=== PATIENT | female | born 1980 | race Caucasian/White ===

== ENCOUNTER 2018-07-22 14:27 | Emergency (ER) | payer OTHER, SELFPAY ==
[2018-07-22 14:28] VITALS: BP 141/76; PULSE 101; RESP 14; TEMP 37; O2SAT 98; BMI 30.7
--- NOTE | 2018-07-22 14:53 | EKG12_ITS ---
Test Reason : HEADACHE Blood Pressure : / mmHG Vent. Rate : 080 BPM Atrial Rate : 080 BPM P-R Int : 144 ms QRS Dur : 072 ms QT Int : 390 ms P-R-T Axes : 070 037 046 degrees QTc Int : 449 ms Normal sinus rhythm Normal ECG Confirmed by SANDRA WALLER MD ([id number]), copy editor RUSSELL HOPKINS ([id number] on 07/24/2018 3:28:25 PM Referred By: Confirmed By:SANDRA WALLER MD
--- NOTE | 2018-07-22 14:55 | NURSING ---
NO OLD EKGS
--- NOTE | 2018-07-22 14:57 | ED.DCSUM_ITS ---
- ER Visit Summary Date of Service: 07/22/18 Chief Complaint: Headache History of Present Illness: The patient is a 37 F presenting with headache. She states this started on . Her headache was gradual in onset and has been intermittent. She states it improves with ibuprofen. She was concerned because she also has lightheadedness associated with this. She has not passed out. She denies vertigo. Denies numbness or weakness. Denies fever. She has history of headaches but she has not been lightheaded with them in the past. This is not the worst headache of her life. She denies chest pain or shortness of breath. Physical Examination: Vitals are stable. Patient is afebrile. Alert no acute distress. HEENT exam is unremarkable. Neck is supple. No meningismus Lungs are clear and equal bilaterally. Heart is regular rate and rhythm. Abdomen is soft nontender nondistended. Extremities are unremarkable. Skin is warm and dry. No focal neurologic deficit. Remainder of exam is unremarkable. Emergency Department Course and Treatment: Patient given IV fluids, Toradol. She states when she turns her head she has an off balance feeling. She was given meclizine with improvement. EKG is sinus rate of 80 with no acute i schemic changes. CBC, chemistries unremarkable. Troponin is negative. HCG negative. Patient is feeling improved. She has a steady gait. She is given a prescription for meclizine. She is advised to follow-up with Dr. Alcala pet supplies salesperson for no doc. Advised return to the ED for worsening complaints. Disposition: Discharge home Impression: Headache This note was generated with 10X10 Room dictation software. It may contain incorrect words, spelling, and punctuation that were not noted in review of the chart prior to signing ED Disposition - Plan for ED Patient: Disposition: Home or Assisted Living Chief Complaint: Headache Instructions: ED Cephalgia Unspecified Prescriptions: RX: Meclizine HCl [Antivert] 12.5 mg PO TID PRN PRN #15 tablet PRN Reason: Vertigo Referrals: Frances Alcala MD [STAFF PHYSICIAN] - González Cruz MD [STAFF PHYSICIAN] - NOT,DEFINED [NON-STAFF] -
[2018-07-22] MEDS: Ketorolac 30 MG/ML Syringe IV (15:13)
[2018-07-22] MEDS: 0.9% Normal Saline 1,000 ML 1000 ML IV (15:13)
[2018-07-22] MEDS: Meclizine 12.5 MG Tablet PO (15:19)
[2018-07-22 15:25] LABS: Absolute Neutrophil Count 8.9 X10^3/uL (2.0-7.7); Basophil# 0.04 X10^3/uL; Basophil% 0.3 % (0-1); Eosinophil# 0.35 X10^3/uL; Hematocrit 44.2 % (37-47); Hemoglobin 15.4 g/dl (12.0-15.0); Lymphocyte % 17.8 % (19-41); Mean Corp Hgb Conc 34.8 g/gl (32-36); Mean Corpuscular Hgb 29.2 pg (27.0-32.0); Mean Corpuscular Volume 83.7 fL (81-99); Mean Platelet Vol. 10.9 fl (6.2-12.0); Monocyte# 0.44 X10^3/uL; Monocyte% 3.7 % (0-10); Neutrophil # 8.85 X10^3/uL (2.7-7.7); Platelet Count 274 K/mm3 (150-450); RBC Distribution Width CV 13.1 % (11.6-14.6); RBC Distribution Width SD 40.2 fl (35.1-43.9); Red Blood Count 5.28 M/mm3 (4.2-5.4); White Blood Count 11.8 K/mm3 (4.4-11.0)
[2018-07-22 15:28] LABS: POSITIVE COUNT NO; POSITIVE DIFFERENTIAL NO; POSITIVE MORPHOLOGY NO
[2018-07-22 15:38] LABS: Anion Gap 5 (5-15); BUN 7 mg/dL (7-18); BUN/Creat Ratio 11.4 RATIO (10-20); Calcium,Total 8.5 mg/dL (8.5-10.1); Chloride 107 mmol/L (98-107); Creatinine, Serum 0.62 mg/dL (0.55-1.02); EST Glomerular Filtration Rate 116 mL/min (>60); Est Glom Filt Rate - Afr Amer 141 mL/min (>60); Glucose 92 mg/dL (74-106); Potassium 3.7 mmol/L (3.5-5.1); Sodium Level 140 mmol/L (136-145)
[2018-07-22 16:02] LABS: Pregnancy, Serum, hCG Quali. NEGATIVE Negative (0-9 Nonpreg)
--- NOTE | 2018-07-22 16:16 | ED.DEP ---
ED Disposition - Plan for ED Patient: Chief Complaint: Headache Instructions: ED Cephalgia Unspecified Prescriptions: Meclizine HCl [Antivert] 12.5 mg PO TID PRN PRN #15 tablet PRN Reason: Vertigo Referrals: NOT,DEFINED [NON-STAFF] - Frances Alcala MD [STAFF PHYSICIAN] - González Cruz MD [STAFF PHYSICIAN] -
== END 2018-07-22 16:53 | disposition home or self-care (01) ==
PROVIDERS: Emergency Provider Emergency Medicine
DX: R51 Headache (principal); Z72.0 Tobacco use
CPT/HCPCS: 80048; 84484; 84703; 85025; 93005; 96361; 96374; 99283; J7030; A4216

== ENCOUNTER → 2022-09-24 | Outpatient (CLI) | payer BC, SELFPAY ==
[2022-09-24 12:10] LABS: Absolute Lymphocyte Count 1.83 X10^3/uL (0.83-4.51); Basophil# 0.03 X10^3/uL; Basophil% 0.3 % (0-1); Eosinophil# 0.26 X10^3/uL; Eosinophils% 2.4 % (0-5); Hematocrit 40.8 % (37-47); Lymphocyte # 1.83 X10^3/ul (0.83-4.51); Lymphocyte % 17.1 % (19-41); Mean Corp Hgb Conc 34.3 g/dL (32-36); Mean Corpuscular Hgb 29.7 pg (27.0-32.0); Mean Corpuscular Volume 86.4 fL (81-99); Monocyte# 0.56 X10^3/uL; Monocyte% 5.2 % (0-10); NRBC Flagged by Analyzer 0 % (0-5); Neutrophil # 7.98 X10^3/uL (2.7-7.7); Neutrophil % 74.6 % (47-70); Platelet Count 236 K/mm3 (150-450); RBC Distribution Width CV 12.5 % (11.6-14.6); RBC Distribution Width SD 39.5 fl (35.1-43.9); Red Blood Count 4.72 M/mm3 (4.2-5.4); White Blood Count 10.7 K/mm3 (4.4-11.0)
[2022-09-24 12:59] LABS: ALB/GLOB Ratio 1.4 RATIO (0.9-2.4); AST(SGOT) 12 U/L (15-37); Alanine Aminotransfer ALT/SGPT 18 U/L (13-56); Alkaline Phosphatase 57 U/L (45-117); Anion Gap 8 (5-15); BUN 12 mg/dL (7-18); BUN/Creat Ratio 22.2 RATIO (10-20); Calcium,Total 8.8 mg/dL (8.5-10.1); Chloride 104 mmol/L (98-107); Cholesterol 211 mg/dL (200); Creatinine, Serum 0.54 mg/dL (0.55-1.02); EST Glomerular Filtration Rate 132 mL/min (>60); Est Glom Filt Rate - Afr Amer 160 mL/min (>60); Globulin 2.9 g/dL (2.2-4.2); Glucose 79 mg/dL (74-106); High Density Lipoprotein 69 mg/dL; Potassium 3.9 mmol/L (3.5-5.1); Protein, Total 6.9 g/dL (6.4-8.2); Sodium Level 140 mmol/L (136-145); Thyroid Stim Hormone (TSH) 0.37 uIU/mL (0.358-3.74); Triglycerides 124 mg/dL; Very Low Density Lipoprotein 25 mg/dL (5-40)
== END | disposition home or self-care (01) ==
LOC: MFPLAB 10:00
PROVIDERS: Visit Provider Family Medicine
DX: Z00.00 Encounter for general adult medical examination without abnormal findings (principal)
CPT/HCPCS: 36415; 80053; 80061; 84443; 85025

== ENCOUNTER 2024-08-23 09:42 | Day surgery (SDC) | payer BC, SELFPAY ==
--- NOTE | 2024-08-21 09:42 | PCM.HP.BLA ---
History and Physical Date of Admission: 08/23/24 HPI: The patient is a 43 year old female presenting for pre-operative visit. She is scheduled for LAVH, bilateral salpingectomy and cystoscopy for dysmenorrhea, adenomyosis, subserous and intramural fibroids and menorrhagia on 08/23/24. Procedure discussed along with risks, benefits and complications. Other alternatives discussed for management. Consent form signed? Yes. PAST MEDICAL HISTORY PAST MEDICAL HISTORY Diagnosis Date ? NEGATIVE MEDICAL HISTORY PAST SURGICAL HISTORY PAST SURGICAL HISTORY Procedure Laterality Date ? INSERTION OF IUD 01/11/2018 ? INSERTION OF IUD 12/2023 fell out within 6 months ? UNSPECIFIED ORAL SURGERY PROCEDURE, BY REPORT [place] CURRENT MEDICATIONS Current Outpatient Medications Medication Sig Dispense Refill ? erythromycin (ROMYCIN) 5 mg/gram (0.5 %) ophthalmic ointment ? triamcinolone (KENALOG) 0.025 % cream APPLY TO THE AFFECTED FLARES ON THE EYELIDS TWICE DAILY X2 WEEKS THEN TWICE WEEKLY NEEDED ? tranexamic acid (LYSTEDA) 650 mg tablet Take 2 tablets 3 times a day as needed for heavy bleeding up to 5 days. (Patient not taking: Reported on 08/07/2024) 30 tablet 2 ? norethindrone (AYGESTIN) 5 mg tablet Take 2 tablets by mouth two times a day. (Patient not taking: Reported on 08/21/2024) 120 tablet 0 No current facility-administered medications for this visit. ALLERGIES: Cefdinir and Penicillins PERSONAL HISTORY: SOCIAL HISTORY Social History Tobacco Use ? Smoking status: Former Current packs/day: 0.00 Types: Cigarettes Start date: 05/08/1999 Quit date: 05/08/2009 Years since quittin.2 ? Smokeless tobacco: Never ? Tobacco comments: 8 cig per day Vaping Use ? Vaping status: Never Used Substance Use Topics ? Alcohol use: Yes Comment: RARELY BUT NOT WHILE ? Drug use: No FAMILY HISTORY: FAMILY HISTORY FAMILY HISTORY Problem Relation Age of Onset ? Alcohol/Drug Mother ? other (graves disease) Mother ? Cancer Father lymphoma ? Arthritis Maternal Grandmother ? Diabetes Maternal Grandmother ? Heart Maternal Grandmother ? Thyroid Maternal Grandmother ? Cancer Paternal Grandfather LEUKEMIA GENERAL: denies fevers or chills ENDOCRINOLOGY: has not been on steroids Cardiology : denies palpitations or chest pain Respiratory: denies SOB or cough Hematology: denies history of prolonged bleeding or easy bruising or VTE Allergy: Denies history of personal or family history of allergy to anesthesia PHYSICAL EXAMINATION: VITALS: Blood pressure 124/82, pulse 84, height 153.7 cm (5' 0.5), weight 64.9 kg (143 lb), last menstrual period 06/11/2024, SpO2 99%. GENERAL: The patient is well nourished, well hydrated in no acute distress. , The patient is oriented to time, place, and person. NECK: Supple. No lynphadenopathy, normal thyroid, no thyromegaly. LUNGS: Clear to auscultation bilaterally. no wheezes, rhonchi or rales HEART: Regular rate and rhythm, Normal heart sounds, and No murmurs or gallops Pelvic ultrasound from 07/12/2024 mpression 3D rendering of the uterus demonstrates a malpositioned IUD with the device not visualized, no IUCD seen in the endometrial cavity. The uterus is anteverted and measures 105 mm x 57 mm x 77 mm. The myometrium is heterogeneous, echogenic but no obvious fibroids are observed. This finding is suggestive of adenomyosis. The endometrial thickness is 3.7 mm. Within the endometrial cavity is a submucous fibroid, and material of mixed echogenicity and small amount of fluid consistent with blood products. No IUD in seen. 1. Right lateral wall submucous fibroid measures 20 mm x 20 mm x 23 mm. 2. Right lateral anterior wall subserous fibroid measures 17 mm x 18 mm x 14 mm. 3. Left lateral posterior wall subserous fibroid measures 15 mm x 13 mm x 12 mm. 4. Left lateral posterior wall intramural fibroid measures 12 mm x 11 mm x 9 mm. 5. Left lateral anterior wall intramural fibroid measures 7 mm x 5 mm x 6 mm. The right ovary measures 28 mm x 22 mm x 17 mm. The left ovary measures 27 mm x 18 mm x 23 mm. IMPRESSION: Dysmenorrhea, intramural and subserosal fibroids, adenomyosis, menorrhagia with irregular cycles PLAN: The risks/benefits/alternatives and personal involved for the planned laparoscopic-assisted vaginal hysterectomy with bilateral salpingectomy and cystoscopy were reviewed with the patient. Her questions were answered to her satisfaction and she desires to proceed. Consent was signed. I reviewed with her postop instructions and expectations. I have reviewed and updated past medical and surgical history, medications and allergies Assessment & Plan Assessment/Plan (1) Dysmenorrhea: (2) Adenomyosis: (3) Menorrhagia with irregular cycle: (4) Fibroids, intramural: (5) Fibroids, subserous:
--- NOTE | 2024-08-21 13:28 | EKG12_ITS ---
Test Reason : PRE OP Blood Pressure : */* mmHG Vent. Rate : 71 BPM Atrial Rate : 71 BPM P-R Int : 130 ms QRS Dur : 64 ms QT Int : 396 ms P-R-T Axes : 64 17 20 degrees QTcB Int : 430 ms Normal sinus rhythm Possible Left atrial enlargement Borderline ECG Confirmed by Todd Reece ([id number]), editor in chief newspaper MARKEL HUIZAR ([id number]) on 08/22/2024 5:50:01 AM Referred By: Nae Dowell Confirmed By: Todd Reece
[2024-08-21 15:00] LABS: Magnesium 2.4 mg/dL (1.6-2.6)
[2024-08-23] VITALS (13 sets, daily range): BP systolic 120–137; BP diastolic 51–85; PULSE 55–89; RESP 14–16; TEMP 36.5–37.2; O2SAT 97–100; BMI 27.6
[2024-08-23 10:20] LABS: Internal QC Validated? YES +Cl - CLEAR BKGD
[2024-08-23 10:21] LABS: Pregnancy, Urine Negative Negative
[2024-08-23] MEDS: metroNIDAZOLE 500 MG/100 ML BAG 100 MG IV (10:25)
[2024-08-23] MEDS: Lactated Ringers 1,000 ML 40 ML IV (10:36)
[2024-08-23] MEDS: Gabapentin 600 MG Tablet PO (10:36)
[2024-08-23] MEDS: Phenazopyridine 95 MG Tablet 190 MG PO (10:37)
[2024-08-23] MEDS: Acetaminophen 500 MG Tablet 1000 MG PO (10:37)
[2024-08-23] MEDS: Enoxaparin 40 MG/0.4 ML Syringe SC (10:37)
[2024-08-23] MEDS: Celecoxib 200 MG Capsule 400 MG PO (10:37)
[2024-08-23] MEDS: Scopolamine 1mg/72hr Patch 1 PATCH TD (10:37)
[2024-08-23] MEDS: Magnesium 1 GM over 15 mins IV (10:45)
[2024-08-23 11:14] LABS: Bedside Glucose 93 mg/dL (74-106)
--- NOTE | 2024-08-23 12:05 | HYST_PTH ---
PATIENT: KATHARINA SWIFT LOC: [facility] [place] U[place][id number] AGE/SX: 43/F ROOM: RE08/23/[address]: Dr. Yari Marsh, MDDOB: 1980 BED: DIS: 08/23/2024 SPEC #: [id number] RECD: 08/23/24 17:55 STATUS: FORTUNATO PAULINO #: [id number] ADRI: 08/23/24 12:[address]: Yari Marsh DEPT: SURGICAL PATHOLOGY RECD BY: Britney Larkin ENTERED: 08/24/24 07:43 SP TYPE: HYSTERECT OTHR DR: MD Dr. Nae Subramanian MD Tissues: Uterus, NOS Procedures: Surgery Specimen Level V HEADER OPERATION: Total laparoscopic hysterectomy, bilateral salpingectomy PRE-OP DIAGNOSIS: Dysmenorrhea, adenomyosis, menorrhagia with irregular cycle, fibroids, intramural, fibroids, subserous TISSUE SUBMITTED: Uterus, cervix, bilateral fallopian tubes MICROSCOPIC DIAGNOSIS Uterus, hysterectomy: Cervix - Nabothian cysts, squamous metaplasia and mild chronic inflammation. Endometrium - Weakly proliferative endometrium, focal squamous metaplasia and mild chronic endometritis. Myometrium - Leiomyomas with degenerative change. Right and left fallopian tubes- No pathologic change. AMMai 08/27/2024 MICROSCOPIC DESCRIPTION Slides are reviewed. GROSS DESCRIPTION Received in fixative is one container labeled with the patient's name and designated uterus. The specimen consists of a uterus with attached cervix and two detached fallopian tubes. The uterus with cervix measures 10.0 x 8.0 x 6.0 cm and weighs 143 gm. The ectocervix is unremarkable. The cervical os is oval in contour and free of mass lesions. The endocervical canal measures 3.5 cm in length and is grossly unremarkable. The triangular endometrial cavity measures 4.5 x 3.0 cm. The reddish-hampton endometrium measures up to 0.2 cm in thickness. The myometrium contains multiple white rubbery nodules ranging in size from 0.7 to 3.2cm. The nodules are intermural and submucosal in the location. The myometrium without the nodules measures 1.7cm in average thickness. Both fallopian tubes are similar in appearance with average lengths of 6.0cm in length and average diameter of 0.5cm. Brush And Broom Clipper sections are submitted as follows: 1 - anterior cervix, 2 - posterior cervix, 3 & 4 - anterior uterine wall, 5 & 6 - posterior uterine wall, 7 - largest myometrial mass, 8 - smaller myometrial masses, 9- one fallopian tube, 10- other fallopian tube. / AM: 08/24/2024 TC:1 CPT: 08034
--- NOTE | 2024-08-23 12:14 | PRE.ANES_ITS ---
ASA Classification* ASA Classification ASA Classification: 1 Assessment & Plan Anesthesia* Anesthesia Assessment Anesthesia Assessment: Discussed sedation and/or anesthesia options, risks, benefits, and alternatives with patient/parents/legal guardian/POA. Questions invited. The patient/parents/legal guardian/POA seems to understand and agrees to proceed with anesthesia plan. Reviewed the physical assessment, medical history, allergy history and patient home medications list prior to surgery/procedure/anesthetic and documented any changes. Performed airway and anesthesia risk assessments. Anesthesia Type Anesthesia Type: General History Source History Obtained from:: Patient and Chart Anesthesia Focused Assessment* Temperature: 98.4 F Pulse Rate: 82 Blood Pressure: 128/85 Respiratory Rate: 16 Pulse Ox: 100 Oxygen Delivery Method: Room Air Airway Assessment Mouth opens: >3 cm Mallampati Score: II Teeth Condition: Chipped/Broken (Chipped tooth #8. It has been bonded. All else are tight) Neck Range of motion (ROM): Full ROM Focused Labs Anesthesia Preop lab: CBC WBC 10.7 K/mm3 (4.4-11.0) 09/24/22 10:01 RBC 4.72 M/mm3 (4.2-5.4) 09/24/22 10:01 Hgb 14.0 g/dL (12.0-15.0) 09/24/22 10:01 Hct 40.8 % (37-47) 09/24/22 10:01 Plt Count 236 K/mm3 (150-450) 09/24/22 10:01 CHEMISTRY Potassium 3.9 mmol/L (3.5-5.1) 09/24/22 10:01 Sodium 140 mmol/L (136-145) 09/24/22 10:01 Magnesium 2.4 mg/dL (1.6-2.6) 08/21/24 13:50 BUN 12 mg/dL (7-18) 09/24/22 10:01 Creatinine 0.54 mg/dL (0.55-1.02) L 09/24/22 10:01 Glucose 79 mg/dL (74-106) 09/24/22 10:01 POC Glucose 93 mg/dL (74-106) 08/23/24 10:41 TSH 0.37 uIU/mL (0.358-3.74) 01/06/23 10:01 COAG Urine Test Negative Negative 08/23/24 10:10 Pre-Assessment Diagnosis/Proposed Procedure Planned Operative Procedure(s): LAVH BSO CYSTO Anesthesia History Anesthesia History - laminator printed circuit boards: Anesthesia History - laminator printed circuit boards Hx Hospitalization No 08/15/24 14:12 Any Problems With Anesthesia No 08/15/24 14:12 Cholinesterase deficiency No 08/15/24 14:12 You/Your Family Experience No 08/15/24 14:12 fever (hyperthermia) with Relationship Recent Exposure to Contagious No 08/23/24 10:18 Disease Does patient have nerve No 08/15/24 14:12 stimulator Patient instructed to have device shut off --Does patient have Pacemaker No 08/23/24 10:18 or ICD? When Was Last Pacemaker Check QUESTION #4 FULL TEXT: You/Your Family Experience fever (hyperthermia) with Anesthesia Last Oral Intake Last Oral intake: Last Oral Intake NPO since 08:00 08/23/24 10:18 Meds taken in AM with sips of No 08/23/24 10:18 water? Meds patient instructed to take am of surgery Any additional information?: Yes NPO since: 08:00 (Patient finished her Ensure at 8 AM.) PONV PONV - laminator printed circuit boards: PONV - laminator printed circuit boards Female Yes 08/15/24 14:12 HX of Motion Sickness Yes 08/15/24 14:12 HX of N/V After Surgery No 08/15/24 14:12 Non-Smoker Yes 08/15/24 14:12 Duration of Surgery greater Yes 08/15/24 14:12 than 60 minutes Number of Risk Factors 4 08/15/24 14:12 PONV Score Severe Risk 08/15/24 14:12 Height & Weight Height & Weight: Anesthesia: Height & Weight Height 5 ft 0.5 in 08/23/24 10:18 Weight: 65.2 kg 08/23/24 10:18 Body Mass Index (BMI) 27.6 08/23/24 10:18 Respiratory Assessment Respiratory Assessment - laminator printed circuit boards: Respiratory Tract Infection Hx - laminator printed circuit boards Hx Respiratory Tract Infection No 08/15/24 14:12 STOP Sleep Apnea STOP Sleep Apnea - laminator printed circuit boards: STOP Sleep Apnea - laminator printed circuit boards Hx Hypertension No 08/15/24 14:12 Hx Sleep Apnea No 08/15/24 14:12 CPAP BIPAP Do you snore loudly (louder No 08/15/24 14:12 than talking or can be heard Do you often feel tired/ No 08/15/24 14:12 fatigued/ sleepy during daytime? Has anyone observed you stop No 08/15/24 14:12 breathing during sleep? STOP Results Negative 08/15/24 14:12 QUESTION #5 FULL TEXT : Do you snore loudly (louder than talking or can be heard through closed doors)? Tobacco Use History Tobacco Use History - laminator printed circuit boards: Tobacco Use History - laminator printed circuit boards Tobacco Use Smoking Status Former smoker 08/15/24 14:12 Hx Tobacco Use No 08/15/24 14:12 Years Smoking Packs Smoked per Day Smoking Cessation Date was Yes - quit smoking within 15 08/15/24 14:12 within the last 15 years years Hx Smoking Cessation Date 09/19/20 08/15/24 14:12 Hx Smoking Cessation No 08/15/24 14:12 Counseling Hematologic Medial History Hematologic Hx - laminator printed circuit boards: Hematologic Medical Hx - documentation supervisor Hx of Blood Transfusion No 08/15/24 14:12 Hx of Transfusion in last 3 No 08/15/24 14:12 Months Date of Last Transfusion (if within last 3 months) Ever experience any problems No 08/15/24 14:12 with transfusion(s)? Specify any problems Hx of Preganancy in last 3 No 08/15/24 14:12 Months Nurse Filling Out Transfusion DSCHRIBER 08/15/24 14:12 & Questions: Date: 08/15/24 08/15/24 14:12 Time: 14:13 08/15/24 14:12 Patient unable to answer at this time (ie. confused, unrespo /Reproduction History /Reproductive History - laminator printed circuit boards: /Reproductive Hx- laminator printed circuit boards Hx Now No 08/15/24 14:12 Gestational Age (in weeks): EDC: Hx Hx Para Hx Section SAB No 08/15/24 14:12 Active Medications Active Medications: Current Medications Generic Name Dose Route Start Last Admin Trade Name Freq PRN Reason Stop Dose Admin Lactated Ringer's 1,000 mls @ 40 mls/hr 08/23/24 12:00 08/23/24 10:36 IV 40 mls/hr .Q25H EVON Administration Lactated Ringer's 1,000 mls @ 40 mls/hr 08/23/24 12:00 IV .Q25H EVON Metronidazole 500 mg in 100 mls @ 100 mls/hr 08/23/24 12:00 08/23/24 10:25 Flagyl IV 08/23/24 12:59 100 mls/hr X1 ONE Administration Insulin Human Lispro 0 unit 08/23/24 12:00 Insulin Lispro 100 Unit/Ml Insuln.Pen SC Q4H PRN PRN BG >/= 180, SEE PROTOCOL Protocol PFSH Medical History Anxiety Alcohol use Rash Back pain Heartburn Former smoker Leg cramps History of echocardiogram Home Medications ?Medication ?Instructions ?Recorded ?Last Taken ?Type diphenhydramine HCl 25 mg capsule 25 mg PO QHS SLEEP 08/15/24 Unknown History ibuprofen 600 mg tablet (IBU) 600 mg PO Q8H PRN PRN pain 08/15/24 Unknown History multivitamin (Daily Multi-Vitamin 1 tab PO DAILY 08/15/24 Unknown History tablet) triamcinolone acetonide 0.025 % 1 applic topical PRN PRN SKIN 08/15/24 Unknown History topical cream Allergy/AdvReac Type Severity Reaction Status Date / Time cephalexin AdvReac Intermediate Nausea/Vom/ Verified 08/23/24 10:17 Diarrhea Penicillins (PCN) AdvReac Rash Verified 08/23/24 10:17 Surgical History Hx of wisdom tooth extraction Social History Smoking Status: Former smoker Review of Systems (Anesthesia) ROS Narrative System reviewed and no additional complaints, except as documented.
[2024-08-23] MEDS: dexAMETHasone 4 MG/ML Vial 8 MG IV (13:38)
[2024-08-23] MEDS: Cefazolin 2 GM in Syringe IV (13:40)
[2024-08-23] MEDS: Bupivacaine Mpf 0.5% 30 ML VIAL (14:30)
--- NOTE | 2024-08-23 14:58 | OP.PCM_ITS ---
Operative Report (Standard) Operative Information Surgery/Procedure Performed: TLH, Bilateral salpingectomy, cysto Surgeon: Yari Marsh Date of Procedure: 08/23/24 Procedure Start Time: 13:49 Procedure Stop Time: 15:02 Pre-Operative Diagnosis: Dysmenorrhea, adenomyosis, Fibroid uterus Post-Operative Diagnosis: same , endometriosis Select all DRAINS/GRAFTS/IMPLANTS that apply: None Type of Anesthesia: General and Local Estimated Blood Loss: 25 Fluids Replaced: 700 Specimen collected: Yes Description of specimen(s) removed: uterus, cervix, bilateral tubes Description of surgery: Patient take to OR and prepped and draped in usual sterile fashion in dorsal lithotomy position with her arms tucked in a neurologically safe and neutral position. The uterus sounded to 9 cm. The diesel tractor operator 3cm uterine manipulator was sutured into place at 3/9:00 position and fischer were placed. Attention was turned to the abdomen. All port sites were infiltrated with 0.5% marcaine before the incisions were made. The anterior abdominal wall was tented up with towel clamps and using a direct entry approach a 5 mm intraumbilical port was placed. Intraperitoneal placement was confirmed with the laparoscope and the pneumoperitoneum was created. The patient was placed in Trendelenburg and 5 mm right and left lower quadrant ports were placed under direct visualization. Air seal rapid insufflator was used. The bowel was swept away. Ovaries appeared normal. The mesosalpinx starting at fimbriated end were grasped, clamped, sealed and transected with the Ligasure. The round ligaments were divided. The anterior peritoneum was dissected down to create the bladder flap with blunt dissection and the LigaSure. The uterine arteries were isolated, clamped, sealed and cut. There was minimal back bleeding from the uterus. Straight bites on uterine artieries performed to drop them off the cuff. The manipulator was used as guide to create colpotomy using monopolar tip of ligasure. once specimen was removed attention was turned to vaginal portion. The specimen was handed off. The cuff was closed with interrupted 0-vicryl figure of 8 sutures. Cystoscopy was performed bilateral ureters were visualized with good efflux. bladder was intact. fischer replaced and sponge stick placed in vagina. The pneumoperitoneum was recreated and the cuff and pedicles were hemostatic. Hemoblast was placed over cuff and pedicles. The skin incisions were closed with skin glue and 3-0 monocryl in the LLQ port site. The vaginal sweep was completed by me. Grafts/Implants Used: none Surgical Findings: normal tubes and ovaries bilaterally endometriosis noted in postierior culdesac Track Repairer scientific laboratory supervisor: Yes Preschool Lead Teacher: Diane Cruz Tasks completed by surveyor instrument assistant: Opening, Dissecting tissue, Removing tissue, Insert Trochanter, Hemostasis: Electrocautery and Retracting Additional hospital nursing assistant?: Yes Additional Filling Technician #2: Esperanza Hugo Tasks completed by hospital nursing assistant #2: Closing and Trocar (removing trochars) Additional hospital nursing assistant?: No Complications Complications: No Admit VTE Documentation VTE Present on Admission: Yes VTE Mechan Device Prophylaxis: SCD's VTE Pharm Prophylaxis ordered?: Yes
--- NOTE | 2024-08-23 15:02 | DCINST_ITS ---
Discharge Instructions Diet Discharge Diet: No restrictions DC O2, CPAP, BIPAP needs Additional Home O2 Discharge instructions: No Dressing / Incision Discharge Activity: May Not Drive (while taking narcotics. may drive when pain controlled. ) and May Shower Return to work on:: 10/04/24 May shower in (days): 1 May resume sexual activity in: 6-8 weeks Weight Bearing Status: Full weight bearing Lifting Restrictions: 20 Additional Activity Instructions:: NOTHING IN THE VAGINA x 6-8 weeks. Dressing / Incision Call your doctor if your incision/area has: Continuous Slow Oozing, Sudden Increased Bleeding, Increased Pain/ Swelling, Increased Redness, Foul Smelling Discharge and Swelling at the incision site Call your doctor if you observe: Fever of 101 or Higher, Inability to have a bowel movement, Using more than 1 pad per hour and Uncontrolled pain Change Dressing in: leave in place till F/U (you have skin glue over incision sites- do not pick off) Cleanse incision/area with: Soap & Water, Keep Dressing Clean & Dry and - (you may let soap and water run over incision sites and dab dry. ) Follow Up Care Please Follow Up With: Yari Marsh MD When: 2 weeks as scheduled for post op visit Test Results: Test results from this visit will be discussed in further detail at your follow- up appointment, if applicable. Discharge Plan Admission Attending Provider: Yari Marsh Primary Care Provider: Manav Honeycutt Instructions Print Language: Japanese Discharge Orders/Prescriptions Prescriptions: No Action triamcinolone acetonide 0.025 % cream 1 applic topical PRN PRN (Reason: SKIN) multivitamin [Daily Multi-Vitamin] Tablet 1 tab PO DAILY ibuprofen [IBU] 600 mg tablet 600 mg PO Q8H PRN PRN (Reason: pain) diphenhydramine HCl 25 mg capsule 25 mg PO QHS Referrals / Follow Up: Care Physician,No Primary [Non-Staff] - Disposition Disposition (needs filled in before D/C Order can be placed): Home, Self Care
--- NOTE | 2024-08-23 15:21 | PCM.POST.ANE ---
Anesthesia: Postop Eval I Current Vital Signs Temperature: 97.8 F Pulse Rate: 59 Blood Pressure: 120/52 Respiratory Rate: 14 Pulse Ox: 97 Oxygen Delivery Method: Room Air Assessment Airway patent: Yes Spontaneous unlabored respirations: Yes Mental status: Awake and Calm nausea: No Vomiting: No Anesthesia Complication: No Fluid Hydration Crystalloid volume administer (ml): 700 Total IV fluid infused: 700 Progress Note Anesthesia document: Postop Eval 1 completed: Yes
--- NOTE | 2024-08-24 07:51 | POSTOPAN2_ITS ---
Anesthesia Postop Eval I Sum Postop Eval Completion status Anesthesia document: Postop Eval 1 completed: Yes Anesthesia Postop Eval I Summary Anesthesia Postop Eval I Summary: Anesthesia Postop Eval I: Assessment Summary Airway patent Yes 08/23/24 15:22 [email or web address] Spontaneous unlabored Yes 08/23/24 15:22 [employer][email or web address] respirations Mental status Awake,Calm 08/23/24 15:22 [email or web address] nausea No 08/23/24 15:22 [employer][email or web address] Vomiting No 08/23/24 15:22 [employer].[email or web address] Anesthesia Postop Eval I: Fluid Summary Crystalloid volume administer 700 08/23/24 15:22 [email or web address].GDOTT (ml) Colloids volume administered ( ml) Blood Product volume administered (ml) Total IV fluid infused 700 08/23/24 15:22 [employer].GDOTT Anesthesia Postop Eval I: Summary Notes Anesthesia Complication No 08/23/24 15:22 [email or web address].[email or web address] Anesthesia Complication Comment: Post-operative progress note Anesthesia: Postop Eval II Evaluation Mental status: Awake Pain Level: 2 nausea: No Vomiting: No
--- NOTE | 2024-08-24 07:51 | PCM.POSTANE2 ---
Anesthesia Postop Eval I Sum Postop Eval Completion status Anesthesia document: Postop Eval 1 completed: Yes Anesthesia Postop Eval I Summary Anesthesia Postop Eval I Summary: Anesthesia Postop Eval I: Assessment Summary Airway patent Yes 08/23/24 15:22 PATIENT RELATIONS LIAISON.[email or web address] Spontaneous unlabored Yes 08/23/24 15:22 PATIENT RELATIONS LIAISON.GDOTT respirations Mental status Awake,Calm 08/23/24 15:22 PATIENT RELATIONS LIAISON.GDOTT nausea No 08/23/24 15:22 PATIENT RELATIONS LIAISON.GDOTT Vomiting No 08/23/24 15:22 PATIENT RELATIONS LIAISON.[email or web address] Anesthesia Postop Eval I: Fluid Summary Crystalloid volume administer 700 08/23/24 15:22 PATIENT RELATIONS LIAISON.GDOTT (ml) Colloids volume administered ( ml) Blood Product volume administered (ml) Total IV fluid infused 700 08/23/24 15:22 PATIENT RELATIONS LIAISON.GDOTT Anesthesia Postop Eval I: Summary Notes Anesthesia Complication No 08/23/24 15:22 PATIENT RELATIONS LIAISON.GDOTT Anesthesia Complication Comment: Post-operative progress note Anesthesia: Postop Eval II Evaluation Mental status: Awake Pain Level: 2 nausea: No Vomiting: No
== END 2024-08-23 19:25 | disposition home or self-care (01) ==
LOC: SDC 09:44 → AC 09:46
PROVIDERS: Anesthesiology; PCP Family Medicine; Referring Provider Obstetrics & Gynecology; Visit Provider Obstetrics & Gynecology
PROC: 0UT94ZZ Resection of Uterus, Percutaneous Endoscopic Approach (ICD-10-PCS; CPT 58571; principal; 2024-08-23 11:45)
DX: D25.1 Intramural leiomyoma of uterus (principal); D25.2 Subserosal leiomyoma of uterus; N92.1 Excessive and frequent menstruation with irregular cycle; N80.03 Adenomyosis of the uterus; N88.8 Other specified noninflammatory disorders of cervix uteri; N87.0 Mild cervical dysplasia; N80.329 Endometriosis of the posterior cul-de-sac, unspecified depth; Z88.1 Allergy status to other antibiotic agents; Z88.0 Allergy status to penicillin; Z87.891 Personal history of nicotine dependence
CPT/HCPCS: 58571; 36415; 81025; 82962; 83735; 88307; 93005; J2405; J3475